=== PATIENT | female | born 1980 | race Caucasian/White ===

== ENCOUNTER 2020-01-29 08:32 | Emergency (ER) | payer OTHER ==
[~2020-01-29] VITALS: Ht 157.5 cm; Wt 89.4 kg
--- OUTSIDE RECORDS SUMMARY | ~2020-01-29 | XMS | Encounter Summary ---
Demographics + + + | Address | [address] | | | [place] [address] | + + + | Home Phone | | + + + | Preferred Language | Unknown | + + + | Marital Status | | + + + | Sabianist Affiliation | Unknown | + + + | Race | Unknown | + + + | Ethnic Group | Unknown | + + + Author + + + | Author | [facility] | | | and [place] | + + + | Organization | [facility] | | | and [place] | + + + | Address | Unknown | + + + | Phone | Unavailable | + + + Support + + +---------+ + | Name | Relationship | Address | Phone | + + +---------+ + | Mayur Bhagat | ECON | Unknown | | + + +---------+ + Care Team Providers + +------+ + | Care Steward/Stewardess Club Car Name | Role | Phone | + +------+ + | Madelyn Cardoso PA-C | PCP | | + +------+ + Reason for Visit Service/Procedure (Routine) +--------+--------+ + + + + | Status | Reason | Specialty | Diagnoses / | Referred By | Referred To | | | | | Procedures | Contact | Contact | +--------+--------+ + + + + | Closed | | Radiology | Diagnoses | | [facility] | | | | | Lumbar | [place], | [address] | | | | | spondylosis | Dale Gonzalez MD | [place], | | | | | Procedures | [address] | [place] | | | | | [place] IN[place] | [place] | [address] | | | | | DX/THER AGNT | [place], [place] | Phone: | | | | | [place] | [address] | [phone] | | | | | FACET JOINT, | Phone: | Fax: | | | | | LUMBAR/SAC, | [phone] | [phone] | | | | | 1ST LEVEL | Fax: | | | | | | [place] IN[place] | [phone] | | | | | | DX/THER AGNT | | | | | | | [place] | | | | | | | FACET JOINT, | | | | | | | LUMBAR/SAC, | | | | | | | 2ND LEVEL | | | | | | | [place] | | | | | | | TRIAMCINOLON | | | | | | | E ACET INJ | | | | | | | NOS, 10 MG | | | | | | | Bilat L4-5, | | | | | | | L5-S1 Facet | | | +--------+--------+ + + + + Encounter Details +--------+ + + + + | Date | Type | Department | Care Team | Description | +--------+ + + + + | 10/28/ | Hospital | [facility] | [place], | Chronic low back | | 2016 | Encounter | MED CTR XRAY [address] | [address] | pain; Facet | | | | [address] [place] | [address] | arthritis of lumbar | | | | [place] [address] | [place] [address] | region; Foraminal | | | | [phone] | [phone] | stenosis of lumbar | | | | | | region; Lumbar | | | | | [facility] | radiculopathy | | | | | [place] | | +--------+ + + + + Social History + +-------+ +--------+ + | Tobacco Use | Types | Packs/Day | Years | Date | | | | | Used | | + +-------+ +--------+ + | Former Smoker | | | | Quit: 08/24/2013 | + +-------+ +--------+ + + + +---------+ + | Alcohol Use | Drinks/Week | oz/Week | Comments | + + +---------+ + | No | 0 Standard drinks | 0.0 | | | | or equivalent | | | + + +---------+ + + + + | Sex Assigned at | Date Recorded | | | | + + + | Not on file | | + + + + + + + | Job Start Date | Occupation | Industry | + + + + | Not on file | Not on file | Not on file | + + + + + + + + | Travel History | Travel Start | Travel End | + + + + + + | No recent travel history available. | + + documented as of this encounter Last Filed Vital Signs + +---------+ + + | Vital Sign | Reading | Time Taken | Comments | + +---------+ + + | Blood Pressure | 152/70 | 10/29/2015 2:00 PM | | | | | PST | | + +---------+ + + | Pulse | 77 | 10/29/2015 2:00 PM | | | | | PST | | + +---------+ + + | Temperature | - | - | | + +---------+ + + | Respiratory Rate | - | - | | + +---------+ + + | Oxygen Saturation | - | - | | + +---------+ + + | Inhaled Oxygen | - | - | | | Concentration | | | | + +---------+ + + | Weight | - | - | | + +---------+ + + | Height | - | - | | + +---------+ + + | Body Mass Index | - | - | | + +---------+ + + documented in this encounter Medications at Time of Discharge + + + +---------+ + + | Medication | Sig | Dispensed | Refills | Start | End Date | | | | | | Date | | + + + +---------+ + + | | Take 30 mg by mouth | | 0 | | | | amphetamine-dextroam | every morning. | | | | | | phetamine (ADDERALL | | | | | | | XR) 30 MG 24 hr | | | | | | | capsule | | | | | | + + + +---------+ + + | cetirizine | Take 10 mg by mouth | | 0 | | | | (ZYRTEC) 10 mg | Daily. | | | | | | tablet | | | | | | + + + +---------+ + + | FLUoxetine | Take 40 mg by mouth | | 0 | | | | (PROZAC) 40 MG | Daily. | | | | | | capsule | | | | | | + + + +---------+ + + | metFORMIN | Take 500 mg by mouth | | 0 | | | | (GLUCOPHAGE-XR) 500 | daily (with | | | | | | mg 24 hr tablet | breakfast). | | | | | + + + +---------+ + + | traMADol (ULTRAM) | 1-2 tablets PO q 6 | 30 | 0 | 09/25/19 | | | 50 mg tablet | hours only as need | tablet | | 16 | | | | for severe back | | | | | | | pain; one time only, | | | | | | | must come from PCP | | | | | + + + +---------+ + + documented as of this encounter Plan of Treatment Not on filedocumented as of this encounter Procedures + +--------+ + + + | Procedure Name | Priori | Date/Time | Associated Diagnosis | Comments | | | ty | | | | + +--------+ + + + | FL FACET INJECTION | Routin | 10/29/2015 | Chronic low back | Results for this | | LUMBAR SACRAL | e | 2:23 PM | pain Facet | procedure are in the | | | | PST | arthritis of lumbar | results section. | | | | | region Foraminal | | | | | | stenosis of lumbar | | | | | | region Lumbar | | | | | | radiculopathy | | + +--------+ + + + documented in this encounter Results FL Facet Injection Lumbar Sacral (10/29/2015 2:23 PM PST) + + | Specimen | + + | | + + + + + | Narrative | Performed At | + + + | 10/29/2015 Bilateral Lumbar Facet Steroid Injections Diagnosis: | [facility] | | Lumbar Spondylosis ICD-10 Code M47.816 Shanice Bhagat | [facility] | | presents to the fluoroscopy suite for fluoroscopically-guided [facility] | | bilateral L4-L5 and L5-S1 facet injections as part of conservative | - IMAGING | | management for chronic pain with lumbar spondylosis. After informed | | | consent was obtained, the patient laid in the prone position on the | | | fluoroscopy table. The areas were identified under fluoroscopic | | | guidance. The areas were prepped and draped in sterile fashion. A | | | 25-gauge, 1.5-inch needle was inserted into each region and | | | approximately 3 mL of buffered 1% lidocaine was infused. Then, a | | | 22-gauge spinal needle was inserted into the superior portion of | | | each facet under fluoroscopic guidance. Confirmation into the joint | | | spaces was obtained with infusion of approximately 1 mL of Omnipaque | | | contrast which showed outline of the facet joints. Then, a | | | combination of 2 mL of 1% lidocaine and 2 mL of 40 mg/mL Kenalog was | | | infused divided between the 4 joints. The patient tolerated the | | | procedure well without complications. Pre- and post-procedure blood | | | pressures were stable. The patient was given verbal as well as written | | | follow-up instructions. Prior to the start of the procedure, | | | the following were performed and/or verified, including correct | | | patient identity, correct site/side marked and visible, agreement on | | | the procedure to be done, correct patient positioning and an | | | accurate procedure consent form. Any safety precautions based on | | | clinical history and/or medication use have been addressed. I | | | personally performed the procedure above. Estimated blood loss: | | | Minimal Complications: None Findings: As expected Anesthesia: Local | | | 1% Lidocaine | | + + + + + + + + | Performing | Address | City/State/Zipcode | Phone Number | | Organization | | | | + + + + + | [facility] | [address] | [place] | [phone] | | [facility] | | [address] | | | - IMAGING | | | | + + + + + documented in this encounter Visit Diagnoses + + | Diagnosis | + + | Chronic low back pain Lumbago | + + | Facet arthritis of lumbar region Lumbosacral spondylosis without myelopathy | + + | Foraminal stenosis of lumbar region Spinal stenosis, lumbar region, without | | neurogenic claudication | + + | Lumbar radiculopathy Thoracic or lumbosacral neuritis or radiculitis, unspecified | + + documented in this encounter Administered Medications + +--------+ +-------+------+------+ | Medication Order | MAR | Action | Dose | Rate | Site | | | Action | Date | | | | + +--------+ +-------+------+------+ | iohexol (OMNIPAQUE 300) 300 | Given | 10/29/19 | 4 mLs | | | | mg/mL injection 4 mL 4 mL, | | 16 2:24 | | | | | INTRATHECAL, ONCE, 10/29/15 at | | PM PST | | | | | 1445, For 1 dose | | | | | | + +--------+ +-------+------+------+ +---+---+ | | | +---+---+ + +-------+ +--------+---+ + | lidocaine 1% injection 10 mL | Given | 10/29/19 | 10 mLs | | Other | | 10 mL, Intradermal, ONCE, Mon | | 16 2:23 | | | (Comment | | 10/29/15 at 1445, For 1 dose | | PM PST | | | ) | + +-------+ +--------+---+ + +---+---+ | | | +---+---+ + +-------+ +-------+---+---+ | sodium bicarbonate (NEUT) 4% | Given | 10/29/19 | 2 mLs | | | | injection 2 mL 2 mL, Topical, | | 16 2:24 | | | | | ONCE, 10/29/15 at 1445, For 1 | | PM PST | | | | | dose | | | | | | + +-------+ +-------+---+---+ +---+---+ | | | +---+---+ + +-------+ +-------+---+---+ | triamcinolone acetonide | Given | 10/29/19 | 80 mg | | | | (KENALOG-40) 40 mg/mL injection | | 16 2:24 | | | | | 80 mg 80 mg, Intra-articular, | | PM PST | | | | | ONCE, 10/29/15 at 1445, For 1 | | | | | | | dose, Shake well. Not for IV | | | | | | | use., | | | | | | + +-------+ +-------+---+---+ +---+---+ | | | +---+---+ documented in this encounter"
--- OUTSIDE RECORDS SUMMARY | ~2020-01-29 | XMS | Encounter Summary ---
Demographics + + + | Address | [address] | | | [place] [address] | + + + | Home Phone | | + + + | Preferred Language | Unknown | + + + | Marital Status | | + + + | Protestant Affiliation | Unknown | + + + | Race | Unknown | + + + | Ethnic Group | Unknown | + + + Author + + + | Author | [facility] | | | and [place] | + + + | Organization | [facility] | | | and [...] Team Providers + +------+ + | Care Biochemical Engineer Name | Role | Phone | + +------+ + | Madelyn Cardoso PA-C | PCP | | + +------+ + Encounter Details +--------+ + + + + | Date | Type | Department | Care Team | Description | +--------+ + + + + | 09/20/ | Abstract | [facility] [place] | [place], | | | 2015 | | PHYSIATRY [address] | [address] | | | | | [address] | [address] | | | | | [address] | [place] [address] | | | | | [address] | [phone] | | | | | [phone] | | | +--------+ + + + + [...] Not on filedocumented as of this encounter Visit Diagnoses Not on filedocumented in this encounter"
--- OUTSIDE RECORDS SUMMARY | ~2020-01-29 | XMS | Encounter Summary ---
Demographics + + + | Address | [address] | | | [place] [address] | + + + | Home Phone | | + + + | Preferred Language | Unknown | + + + | Marital Status | | + + + | Alevism Affiliation | Unknown | + + + | Race | Unknown | + + + | Ethnic Group | Unknown | + + + Author + + + | Author | [facility] | | | and [place] | + + + | Organization | [facility] | | | [...] Team Providers + +------+ + | Care Outside Installation Machinist Name | Role | Phone | + +------+ + | Madelyn Cardoso PA-C | PCP | | + +------+ + Encounter Details +--------+ + + + + | Date | Type | Department | Care Team | Description | +--------+ + + + + | 09/10/ | Abstract | [facility] [place] | [place], | | | 2015 | | PHYSIATRY [address] | [address] | | | | | [address] | [address] | | | | | [address] | [place] [address] | | | | | [address] | [phone] | | | | | [phone] | | | +--------+ + + + [...]
--- OUTSIDE RECORDS SUMMARY | ~2020-01-29 | XMS | Encounter Summary ---
Demographics + + + | Address | [address] | | | [place] [address] | + + + | Home Phone | | + + + | Preferred Language | Unknown | + + + | Marital Status | Single | + + + | Sikh Affiliation | Unknown | + + + | Race | White | + + + | Ethnic Group | Not or | + + + Author + + + | Author | [facility] | + + + | Organization | [facility] | + + + | Address | Unknown | + + + | Phone | Unavailable | + + + Support + + +---------+ + | Name | Relationship | Address | Phone | + + +---------+ + | None Per Pt | ECON | Unknown | Unavailable | + + +---------+ + Care Team Providers + +------+ + | Care Marine Electronics Repairer Name | Role | Phone | + +------+ + PCP | Unavailable | + +------+ + Reason for Visit +--------+ + | Reason | Comments | +--------+ + | Other | Care Everywhere Inquiry | +--------+ + Encounter Details +--------+ + + + + | Date | Type | Department | Care Team | Description | +--------+ + + + + | 11/25/ | Abstract | Rheumatology at | Clinic, | Other (Care | | 2017 | | [facility] | Rheumatology | Everywhere Inquiry) | | | | [address] | | | | | | [facility] | | | | | | [facility], [address] Floor | | | | | | [place], [place] | | | | | | [address] | | | | | | [phone] | | | +--------+ + + + + Social History + +-------+ +--------+------+ | Tobacco Use | Types | Packs/Day | Years | Date | | | | | Used | | + +-------+ +--------+------+ | Never Assessed | | | | | + +-------+ +--------+------+ + + + | Sex Assigned at [...]
--- OUTSIDE RECORDS SUMMARY | ~2020-01-29 | XMS | Encounter Summary ---
Demographics + + + | Address | [address] | | | [place] [address] | + + + | Home Phone | | + + + | Preferred Language | Unknown | + + + | Marital Status | Single | + + + | Jainism Affiliation | Unknown | + + + | Race | White | + + + | Ethnic Group | Not or | + + + Author + + + | Author | [facility] | + + + | Organization | [facility] | + + + | Address | Unknown | + + + | Phone | Unavailable | + + + Support + + +---------+ + | Name | Relationship | Address | Phone | + + +---------+ + | None Per Pt | ECON | Unknown | Unavailable | + + +---------+ + Care Team Providers + +------+ + | Care Application Operations Engineer Name | Role | Phone | + +------+ + PCP | Unavailable | + +------+ + Encounter Details +--------+ + + + + | Date | Type | Department | Care Team | Description | +--------+ + + + + | 08/18/ | ED Progress | Emergency Medicine | Report, Emergency | ED Progress Note | | 1994 | | [address] | Services | | | | Note-Transc | [address] | | | | | [place] | [place], [place] | | | | | | [address] | | | +--------+ + + + [...]
--- OUTSIDE RECORDS SUMMARY | ~2020-01-29 | XMS | Encounter Summary ---
Demographics + + + | Address | [address] | | | [place] [address] | + + + | Home Phone | | + + + | Preferred Language | Unknown | + + + | Marital Status | | + + + | Restorationism Affiliation | Unknown | + + + | Race | Unknown | + + + | Ethnic Group | Unknown | + + + Author + + + | Author | [facility] | | | and [place] | + + + | Organization | [facility] | | | and [...] Team Providers + +------+ + | Care Cold Saw Operator Name | Role | Phone | + [...] | | | | [address] | [place] [address] | | | | | [address] | [phone] | | | | | [phone] | | | +--------+ + + + [...]
--- OUTSIDE RECORDS SUMMARY | ~2020-01-29 | XMS | Encounter Summary ---
Demographics + + + | Address | [address] | | | [place] [address] | + + + | Home Phone | | + + + | Preferred Language | Unknown | + + + | Marital Status | | + + + | Judaism Affiliation | Unknown | + + + | Race | Unknown | + + + | Ethnic Group | Unknown | + + + Author + + + | Author | [facility] | | | and [place] | + + + | Organization | [facility] | | | and [...] Team Providers + +------+ + | Care Barrel Rifler Name | Role | Phone | + +------+ + | Madelyn Cardoso PA-C | PCP | | + +------+ + Reason for Visit + + + | Reason | Comments | + + + | Back Pain | low back pain radiating into right leg | + + + Evaluate & Treat (Routine) +--------+--------+ + + + + | Status | Reason | Specialty | Diagnoses / | Referred By | Referred To | | | | | Procedures | Contact | Contact | +--------+--------+ + + + + | Closed | | Physical | Diagnoses | | [place], | | | | Medicine and | Annular | Walker, | Dale Gonzalez MD | | | | Rehabilitatio | tear of | Madelyn Rodriguez, | [address] | | | | n | lumbar disc | PA-C [address] | | | | | Facet | [address] | [facility], [place] | | | | | hypertrophy | Ave | [address] Phone: | | | | | of lumbar | Tabitha, | [phone] | | | | | region | [place] | Fax: | | | | | | [address] | [phone] | | | | | | Phone: | | | | | | | [phone] | | | | | | | Fax: | | | | | | | [phone] | | +--------+--------+ + + + + Encounter Details +--------+---------+ + + + | Date | Type | Department | Care Team | Description | +--------+---------+ + + + | 09/25/ | Office | [facility] | [place], | Chronic low back | | 2016 | Visit | PHYSIATRY [address] | [address]OR Jeter [address] | pain (Primary Dx); | | | | [address] | [address] | Facet arthritis of | | | | [place], [place] | [place] [address] | lumbar region; | | | | [address] | [phone] | Foraminal stenosis | | | | [phone] | | of lumbar region; | | | | | | Lumbar radiculopathy | +--------+---------+ + + + Social History + +-------+ [...] this encounter Last Filed Vital Signs + + + + + | Vital Sign | Reading | Time Taken | Comments | + + + + + | Blood Pressure | 127/85 | 09/25/2015 2:27 PM | | | | | PST | | + + + + + | Pulse | 95 | 09/25/2015 2:27 PM | | | | | PST | | + + + + + | Temperature | - | - | | + + + + + | Respiratory Rate | - | - | | + + + + + | Oxygen Saturation | - | - | | + + + + + | Inhaled Oxygen | - | - | | | Concentration | | | | + + + + + | Weight | 83.5 kg (184 lb) | 09/25/2015 2:27 PM | | | | | PST | | + + + + + | Height | 157.5 cm (5' 2") | 09/25/2015 2:27 PM | | | | | PST | | + + + + + | Body Mass Index | 33.65 | 09/25/2015 2:27 PM | | | | | PST | | + + + + + documented in this encounter Patient Instructions Patient Instructions Steffany Montes De Oca PA-C - 09/25/2015 2:58 PM PST1) Facet steroid in jection 2) Please continue with physical therapy 3) If the leg pain continues we can start that with steroid injections too Facet Pain: The facet joint is located when the vertebrae (bones of the spine) connect to each other. Pain occurs with extension and rotation of the spine (bending backwards and rotating), bend ing over and lifting a heavy load, standing, first things in the morning. Images of the spi ne show facet arthritis, fluid in the facet joints. Treatment included rest, anti-inflammat ories, physical therapy focusing on core strengthening, facet steroid injections. Steroids are a very strong anti-inflammatory, this helps reduce pain by reducing swelling. Complications of steroids are bleeding, infection, and an increase of blood sugars if you are diabetic. medical terminologist risk can lead to osteoporosis which is why we limited the number of injections to 3 times per year. Facet joints are located when the vertebrae (bones of the spine) connect to each other. Typically these joints can have arthritis in this and give a person centralized low back pain. The procedure takes about 20 minutes. You lie on your b ack and x-rays are taken. Once the region is localized, it is numbed and then injected with steroid. Radiofrequency Ablation (RFA) Burning of the nerves: This procedure is typically done when the steroid injections give excellent initial relief but does not last long. It is the same procedure as the steroid injections however it take s approximately 2 hours to complete. A needle is placed inside the facet joints and then co nnected to a battery pack which heats up the needle to burn the nerves inside the joint. Yo u must not eat after midnight the night before as you are put into procedural sedation where you can hear and talk but do not feel pain. You must have a entry level truck driver to get home from the hospital. You will feel more bruising pain to the location of the needles for approxima tely 4-5 days after this procedure, but once that clears up, you should be pain free for 8 m onths to 2 years, depends on when the nerve grows back. Foraminal Stenosis/Radicular Pain: Foraminal stenosis is a narrowing of the spinal foramen, the hole through which passes a s leyda nerve as it exits the spine. It is usually a form of degenerative spine disease which occurs slowly over time with wear and tear of the spinal column. Arthritic changes of the s pine, a herniated discs, soft tissue swelling and bony growth can all impinge on the formal foramen and compress the nerve. Because the narrowing (stenosis) of the foramen pinches a nerve, the primary symptoms relat ed to this disorder is directly related to that nerve which is affected. This obviously vari es depending on which foramina are involved. The pinched nerve can lead to basically two cl asses of symptoms. Symptoms include pain in the distribution of that nerve as well as numbne ss, tingling and or weakness can occur. Steroids are a very strong anti-inflammatory, this helps reduce pain by reducing swelling. Complications of steroids are bleeding, infection, and an increase of blood sugars if you are diabetic. USP risk can lead to osteoporosis which is why we limited the number of injections to 3 times per year. With an epidural injection, the nerve root that comes out of the spine and travels down your leg is targeted. The procedure is about 20 minutes long . You will lie on your back while x-rays are taken. Once the region is marked, it is numbe d and then injected with steroids. documented in this encounter Progress Notes Steffany Montes De Oca PA-C - 09/25/2015 2:11 PM PSTFormatting of this note might be differe nt from the original. CHIEF COMPLAINT: Chief Complaint Patient presents with Back Pain low back pain radiating into right leg HISTORY OF PRESENT ILLNESS: The patient is a 35 y.o. female being seen today for complaint s of low back pain that began 6 months ago from no known reason but has gotten worse. 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 She reports her job is very physical and her back pain is limiting her ability to do this work. Since the symptoms began, she has noticed that symptoms have been chronic, constant and wor sening. She describes the pain as a aching, sharp, shooting and throbbing feeling. She rates the pain as severe. Her symptoms worsen with lifting her caregiver, prolonged standing more than 4 hurs, driving her stick shift car and standing straight. Sleep is difficulty as she cannot find a comfortable position. Her symptoms improve with sitting down. The patient also describes leg symptoms that occur on her right side. The leg symptoms acc ount for greater than or equal to 25% of her symptoms. The leg symptoms are intermittent an d the symptoms travels from the right low back down to the right toes following the L5 derma tome. The patient does not describe numbness of the legs. She does not report weakness of the l egs. She does not have bowel and bladder dysfunction. She does not have saddle anesthesia . Treatments for these complaints have included physical therapy which she went just once jus t to her schedule she could not find time to go again, use of NSAIDS every 4-6 hours, muscle relaxers. Patient's medications, allergies, past medical, surgical, social and family histories were reviewed and updated as appropriate. PAST MEDICAL HISTORY: Past Medical History Diagnosis Date Depression with anxiety Fatty liver disease, nonalcoholic Lower back pain Polycystic ovarian syndrome ADHD (attention deficit hyperactivity disorder) HLA B27 (HLA B27 positive) Depression Hypertension Chronic low back pain 09/25/2015 Facet arthritis of lumbar region 09/25/2015 Foraminal stenosis of lumbar region 09/25/2015 Lumbar radiculopathy 09/25/2015 PAST SURGICAL HISTORY: Past Surgical History Procedure Laterality Date section 1995;2012 X2 [facility] Tonsillectomy 2006 [facility] Cholecystectomy 2012 CURRENT MEDICATIONS: Current Outpatient Prescriptions Medication Sig Dispense Refill amphetamine-dextroamphetamine (ADDERALL XR) 30 MG 24 hr capsule Take 30 mg by mouth renetta ry morning. cetirizine (ZYRTEC) 10 mg tablet Take 10 mg by mouth Daily. FLUoxetine (PROZAC) 40 MG capsule Take 40 mg by mouth Daily. metFORMIN (GLUCOPHAGE-XR) 500 mg 24 hr tablet Take 500 mg by mouth daily (with breakfas t). traMADol (ULTRAM) 50 mg tablet 1-2 tablets PO q 6 hours only as need for severe back pa in; one time only, must come from PCP 30 tablet 0 No current facility-administered medications for this visit. ALLERGIES: Allergies Allergen Reactions Sulfa Antibiotics Diarrhea and Nausea And Vomiting Amoxicillin Hives and Rash Erythromycin Hives and Rash SOCIAL HISTORY: The patient reports that she quit smoking about 2 years ago. She does not have any smokele ss tobacco history on file. She reports that she does not drink alcohol. FAMILY HISTORY: Family History Problem Relation Age of Onset Diabetes Father Other (See Comment) Father ANKYLOSING SPONDYLITIS Diabetes Maternal Grandmother Breast cancer Mother Cancer Mother Arthritis Mother Other (See Comment) Sister ANKYLOSING SPONDYLITIS Diabetes Sister Polycystic ovary Daughter PCOS Heart attack Maternal Grandfather REVIEW OF SYSTEMS: GENERALLY: No fever, chills, no night sweats, + weight gain, no weight loss, no anemia, n o fatigue. EYES: No eye problems, no impaired sight, + eye glasses/contacts, no eye injury, no double vision, no transient blindness. EARS, NOSE, THROAT and MOUTH: No change in sense taste/smell, no hearing difficulty, no ri nging in ears, no drainage from ears, no ear injury, no dizziness, no voice change, no diffi culty swallowing, no snoring, no sleep apnea/CPAP, no sinus trouble, no dental work. NEUROMUSCULAR: No numbness/pain of arms, + numbness/pain of legs, no awake with numbness/p ain, + weakness, + muscle aching, no coordination difficulty, no change in walk, no head inj ury, no neck injury, no back injury, no pain in neck, no pain in back, no stroke, no faintin g spells, no loss of consciousness, no tremor/shaking, no seizures, no headaches, no migrain es, no memory loss, no speech difficulty, no confusion, no numbness of face. PSYCHIATRIC: No depression, no difficulty sleeping, no anxiety, no bipolar disorder. CARDIOVASCULAR/PULMONARY: No heart attack, no heart murmur, no fluttering heart, no shortn ess of breath, no cough, no Tuberculosis, no chest pain, no swelling ankles, no bloody cough ing, no asthma, no COPD/emphysema. GASTROINTESTINAL: No bowel disease, no nausea/vomiting, no rectal bleeding/hemorroids, no constipation, no fecal/stool incontinence, no liver/gallbladder disease, no abdominal pain. KIDNEY DISEASE: No frequent urination, no painful/difficult with urination, no urinary inco ntinence, no bladder problems, no impotence, no irregular period, no vaginal discharge. ENDOCRINE: No diabetes, no thyroid disease, no osteoporosis/osteopenia, no drainage from br easts. INTEGUMENTARY/SKIN: No lump in breasts, no skin disease or skin changes, no rash/itch. HEMATOLOGIC: No enlarged lymph nodes, no ease or unusual bleeding, no cancer. RHEUMATOLOGIC: + joint pain/arthritis, no Rheumatoid Arthritis PHYSICAL EXAMINATION: Filed Vitals: 09/25/15 1427 BP: 127/85 Pulse: 95 PainSc: 6 PainLoc: Back Body mass index is 33.65 kg/(m^2). GENERAL: The patient is well developed and well nourished. She does appear uncomfortable w hen seated. HEENT: HEAD/FACE: EYES: EARS: NASOPHARNYX: OROPHARNYX: Normocephalic and atraumatic. There are no areas of recent trauma. Normal sclerae without icterus. No drainage or tenderness. Clear without drainage. Clear without erythema. SKIN Limited skin exam shows no significant rashes or lesions. There are not scars in the lumbar region. CHEST: The patient is in no acute respiratory distress with unlabored respirations. HEART: There is not lower extremity edema. ABDOMEN: The patient is overweight. NEUROLOGIC: The patient is awake, alert, and oriented to time, place, person. She follows simple and complex commands. Her speech is fluent. She comprehends speech well. 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 She has appropriate fund of knowledge Cranial nerves 2-12 appear grossly intact. Sensory exam does not show diminished sensation to light touch in the lower extremities. REFLEX: RIGHT LEFT PATELLAR 2+ 2+ ACHILLES 2+ 2+ MUSCULOSKELETAL There is no major palpable deformity of the spine. Straight leg raise and slump-sit are negative. Caden's maneuver and impingement testing were negative for any groin pain. There was no tenderness to palpation over the greater tr ochanters or sacral sulci. The patient localized the majority of the pain to the L4-L5 and L5-S1 region. Lumbar facet loading was positive, right greater than left. Strength testing showed 5/5 strength throughout the lower extremities. The patient was able to heel and toe walk without difficulty. There was no redness, effusion, warmth or joint line tenderness i n the knees or ankles. RADIOGRAPHIC REVIEW: The patient's imaging was reviewed in detail with the patient today during the visit. Lumb ar MRI from 08/07/2015 under the name "Shanice Delong" shows lumbar DDD especially at L4/L5 a nd L5/S1, with facet arthritis at this level. She also has foraminal stenosis at L5/S1 on th e right. ASSESSMENT: 1. Chronic low back pain 2. Facet arthritis of lumbar region 3. Foraminal stenosis of lumbar region 4. Lumbar radiculopathy PLAN: 1. We discussed her MRI and symptoms in detail today. The patient has had significant con servative care including medications, and physical therapy. Unfortunately she continues to h ave significant discomfort. It appears to me that the pain is primarily coming from the fac et arthritis. I did feel that she would be a good candidate for interventional procedures a nd I offered bilateral L4/L5 and L5/S1 facet steroid injections as the next step. 2. If her radicular symptoms are more pronounced we can target this with a transforaminal epidural steroid injection. 3. I have asked her to continue with physical therapy, even if she goes 1x/week and do garrett e exercise program. 4. 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 We reviewed a home exercise pr ogram including aerobic conditioning, isometric core strengthening and gentle stretching. 5. She did ask for pain medications. In the end I gave her a one time prescription for tr amadol, but advised her our goal here in physiatry is to get improve her symptoms enough she is not reliant on pain medications. I told her all narcotics should come from her PCP. 6. I informed her she is not a surgical candidate at this time. 7. She will follow up 2 weeks after the facet steroid injections. ELECTRONICALLY SIGNED BY: Steffany Montes De Oca PA-C, 09/25/2015 CC: Madelyn Mcdonnelllectronically signed by Steffany Montes De Oca PA-C at 09/25/2015 3: 24 PM PSTdocumented in this encounter Plan of Treatment Not on filedocumented as of this encounter Results [place] Facet Injection Lumbar Sacral (10/29/2015 2:23 PM PST) + + | Specimen | + + | | + + + + + | Narrative | Performed At | + + + | 10/29/2015 Bilateral Lumbar Facet Steroid Injections Diagnosis: | [facility] | | Lumbar Spondylosis ICD-10 Code M47.816 Shanice Bhagat | [facility] | | presents to the fluoroscopy suite for fluoroscopically-guided | [facility] | | bilateral L4-L5 and L5-S1 facet [...] | + + + + + | [address] | [address] | [place] | [phone] | | [facility] | | [address] | | | - IMAGING | | | | + + + + + documented in this encounter Visit Diagnoses + + | Diagnosis | + + | Chronic low back pain - Primary Lumbago | + + | Facet arthritis of lumbar region Lumbosacral spondylosis without myelopathy | + + | Foraminal stenosis of lumbar region Spinal stenosis, lumbar region, without | | neurogenic claudication | + + | Lumbar radiculopathy Thoracic or lumbosacral neuritis or radiculitis, unspecified | + + documented in this encounter
--- OUTSIDE RECORDS SUMMARY | ~2020-01-29 | XMS | Encounter Summary ---
Demographics + + + | Address | [address] | | | [place] [address] | + + + | Home Phone | | + + + | Preferred Language | Unknown | + + + | Marital Status | | + + + | Moravian Affiliation | Unknown | + + + | Race | Unknown | + + + | Ethnic Group | Unknown | + + + Author + + + | Author | [facility] | | | and [place] | + + + | Organization | [facility] | | | and [...] Team Providers + +------+ + | Care Data Governance Analyst Name | Role | Phone | + +------+ + | Madelyn Cardoso PA-C | PCP | | + +------+ + Reason for Visit +--------+ + | Reason | Comments | +--------+ + | Other | post injection complication | +--------+ + Encounter Details +--------+ + + + + | Date | Type | Department | Care Team | Description | +--------+ + + + + | 10/30/ | Telephone | [facility] | Dale Cardoza | Other (post | | 2016 | | PHYSIATRY [address] | [address] | injection | | | | [address] | [place], [place] | complication) | | | | [place], [place] | [address] | | | | | [address] | | | | | | [phone] | | | +--------+ + + + [...]
--- OUTSIDE RECORDS SUMMARY | ~2020-01-29 | XMS | Encounter Summary ---
Demographics + + + | Address | [address] | | | [place] [address] | + + + | Home Phone | | + + + | Preferred Language | Unknown | + + + | Marital Status | | + + + | Presybeterian Affiliation | Unknown | + + + | Race | Unknown | + + + | Ethnic Group | Unknown | + + + Author + + + | Author | [facility] | | | and [place] | + + + | Organization | [facility] | | | [...] Team Providers + +------+ + | Care Residential Plumber Name | Role | Phone | + +------+ + PCP | Unavailable | + +------+ + Encounter Details +--------+ + + + + | Date | Type | Department | Care Team | Description | +--------+ + + + + | 08/03/ | [facility] | [facility] | Mariano Sow | | | 2005 | Encounter | MED CTR SLEEP | MD [address] | | | | | CENTER [address] | [place] | | | | | [place] | [place] [address] | | | | | [address] | [phone] | | | | | [phone] | | | +--------+ + + + [...]
--- OUTSIDE RECORDS SUMMARY | ~2020-01-29 | XMS | Encounter Summary ---
Demographics + + + | Address | [address] | | | [place] [address] | + + + | Home Phone | | + + + | Preferred Language | Unknown | + + + | Marital Status | | + + + | Nondenominational Affiliation | Unknown | + + + | Race | Unknown | + + + | Ethnic Group | Unknown | + + + Author + + + | Author | [facility] | | | and [place] | + + + | Organization | [facility] | | | and [...] Team Providers + +------+ + | Care Security Operations Analyst Name | Role | Phone | [...] + | 10/30/ | Telephone | [facility] | Dale Cardoza | Other (post | | 2016 | | PHYSIATRY [address] | [address] | injection | | | | [address] | [place] | complication) | | | | [place], [place] | [address] | | | | | [address] | | | | | | [phone] | | | +--------+ + + + [...]
--- OUTSIDE RECORDS SUMMARY | ~2020-01-29 | XMS | Encounter Summary ---
Demographics + + + | Address | [address] | | | [place] [address] | + + + | Home Phone | | + + + | Preferred Language | Unknown | + + + | Marital Status | | + + + | Orthodox Affiliation | Unknown | + + + | Race | Unknown | + + + | Ethnic Group | Unknown | + + + Author + + + | Author | [facility] | | | and [place] | + + + | Organization | [facility] | | | [...] Team Providers + +------+ + | Care Financial Systems Administrator Name | Role | Phone | + +------+ + PCP | Unavailable | + +------+ + Encounter Details +--------+ + + + + | Date | Type | Department | Care Team | Description | +--------+ + + + + | 03/27/ | Hospital | [facility] | | | | 1999 | Encounter | MED CTR EMERGENCY | | | | | | NANCY Hernandez | | | | | | [place] | | | | | | [address] | | | | | | [phone] | | | +--------+ + + + [...]
--- OUTSIDE RECORDS SUMMARY | ~2020-01-29 | XMS | Encounter Summary ---
Demographics + + + | Address | [address] | | | [place] [address] | + + + | Home Phone | | + + + | Preferred Language | Unknown | + + + | Marital Status | | + + + | Sikhism Affiliation | Unknown | + + + | Race | Unknown | + + + | Ethnic Group | Unknown | + + + Author + + + | Author | [facility] | | | and [place] | + + + | Organization | [facility] | | | [...] Team Providers + +------+ + | Care Detail Assembler Name | Role | Phone | + +------+ + PCP | Unavailable | + +------+ + Encounter Details +--------+ + + + + | Date | Type | Department | Care Team | Description | +--------+ + + + + | 08/03/ | [facility] | [facility] | Mariano Sow | | | 2005 | Encounter | MED CTR SLEEP | [address] | | | | | CENTER [address] | [place] | | | | | [place] | [place] [address] | | | | | [address] | [phone] | | | | | [phone] | | | +--------+ + + + [...]
--- OUTSIDE RECORDS SUMMARY | ~2020-01-29 | XMS | Clinical Summary ---
Demographics + + + | Address | [address] | | | [place] [address] | + + + | Home Phone | | + + + | Preferred Language | Unknown | + + + | Marital Status | Single | + + + | Presybeterian Affiliation | Unknown | + + + | Race | White | + + + | Ethnic Group | Not or | + + + Author + + + | Author | [facility] | + + + | Organization | [facility] | + + + | Address | Unknown | + + + | Phone | Unavailable | + + + Support + + +---------+ + | Name | Relationship | Address | Phone | + + +---------+ + | None Per Pt | ECON | Unknown | Unavailable | + + +---------+ + Care Team Providers + +------+ + | Care Pre Sales Architect Name | Role | Phone | + +------+ + | Razia Guzman PA-C | PCP | | + +------+ + Source Comments JULIO is fully live on both [facility] Ambulatory and [facility] InPatient.[facility] Allergies Not on File Medications Not on file Active Problems Not on file Social History + +-------+ +--------+------+ | Tobacco [...] recent travel history available. | + + Last Filed Vital Signs Not on file Plan of Treatment + + + + + | Health Maintenance | Due Date | Last Done | Comments | + + + + + | Influenza (Flu) | | | | | vaccination (#1) | 9 | | | + + + + + | Pneumococcal | Aged Out | | No longer eligible | | vaccination | | | based on patient's | | | | | age to complete this | | | | | topic | + + + + + Results Not on filefrom Last 3 Months Insurance + +--------+ +--------+ + +------+ | Payer | Benefi | Subscriber | Effect | Phone | Address | Type | | | t Plan | ID | rosemary | | | | | | / | | Dates | | | | | | Group | | | | | | + +--------+ +--------+ + +------+ | [facility] | PHP | [phone] | 08/24/19 | [phone] | [address] | PPO | | | [address] | | 17-Pre | [address] | [address] | | | [address] | | sent | | [place], | | | | [place] | | | | [place] [address] | | + +--------+ +--------+ + +------+ + +--------+ +--------+ + + | Guarantor Name | Accoun | Relation to | Date | Phone | Billing Address | | | t Type | Patient | of | | | | | | | | | | + +--------+ +--------+ + + | Shanice Bhagat | Person | Self | [birth year] | [address] | | | al/Fam | | 1980 | [phone] | [place] | | | [place]i | | | 3 (Home) | [address] | + +--------+ +--------+ + +"
--- OUTSIDE RECORDS SUMMARY | ~2020-01-29 | XMS | Encounter Summary ---
Demographics + + + | Address | [address] | | | [place] [address] | + + + | Home Phone | | + + + | Preferred Language | Unknown | + + + | Marital Status | | + + + | Episcopalian Affiliation | Unknown | + + + | Race | Unknown | + + + | Ethnic Group | Unknown | + + + Author + + + | Author | [facility] | | | and [place] | + + + | Organization | [facility] | | | [...] Team Providers + +------+ + | Care Product Technician Name | Role | Phone | + [...] | | Facet | [address] | [facility] | | | | | hypertrophy | Ave | [address] Phone: | | | | | of lumbar | [place], | [phone] | | | | | region | [place] | Fax: | | | | | | [address] | [phone] | | | | | | Phone: | | | | | | | [phone] | | | | | | | Fax: | | | | | | | [phone] | | +--------+--------+ + + + + Encounter Details +--------+---------+ + + + | Date | Type | Department | Care Team | Description | +--------+---------+ + + + | 09/25/ | Office | [facility] | [place], | Chronic low back | | 2016 | Visit | PHYSIATRY [address] | [address] | pain (Primary Dx); | | | | [address] | [address] | Facet arthritis of | | | | [place], [place] | [place] [address] | lumbar region; | | | | [address] | [phone] | Foraminal stenosis | | | | [phone] | | of lumbar region; | | [...] of blood sugars if you are diabetic. 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 [...] of blood sugars if you are diabetic. group home risk can lead to osteoporosis which is [...] has no apparent deficits with short or long goods drier memory. She has appropriate fund of knowledge [...] best thing to do for back pain, long goods drier, is get ting to and/or maintaining an [...] ICD-10 Code M47.816 Shanice Bhagat | [facility] | | presents to the fluoroscopy suite for fluoroscopically-guided | [facility] | | bilateral L4-L5 and L5-S1 [...] + | [address] | [address] | [place] | [phone] | | [facility] | | [address] | | | - IMAGING | | [...]
--- OUTSIDE RECORDS SUMMARY | ~2020-01-29 | XMS | Encounter Summary ---
Demographics + + + | Address | [address] | | | [place] [address] | + + + | Home Phone | | + + + | Preferred Language | Unknown | + + + | Marital Status | Single | + + + | Zoroastrianism Affiliation | Unknown | + + + | Race | White | + + + | Ethnic Group | Not or | + + + Author + + + | Author | [facility] | + + + | Organization | [facility] | + + + | Address | Unknown | + + + | Phone | Unavailable | + + + Support + + +---------+ + | Name | Relationship | Address | Phone | + + +---------+ + | None Per Pt | ECON | Unknown | Unavailable | + + +---------+ + Care Team Providers + +------+ + | Care Twenty One Dealer Name | Role | Phone | + [...] | Everywhere Inquiry) | | | | [address] | | | | | | [address] [facility] | | | | | | [address]ilion, [address] Floor | | | | | | [place], [place] | | | | | | [address] | | | | | | [phone] | | | +--------+ + + + [...]
--- OUTSIDE RECORDS SUMMARY | ~2020-01-29 | XMS | Encounter Summary ---
Demographics + + + | Address | [address] | | | [place] [address] | + + + | Home Phone | | + + + | Preferred Language | Unknown | + + + | Marital Status | | + + + | Voodoo Affiliation | Unknown | + + + | Race | Unknown | + + + | Ethnic Group | Unknown | + + + Author + + + | Author | [facility] | | | and [place] | + + + | Organization | [facility] | | | and [...] Team Providers + +------+ + | Care Kitchen Lead Name | Role | Phone | + [...] | Lumbar | [place], | [address] | | | | | spondylosis | Dale Gonzalez MD | [place], | | | | | Procedures | [address] | [place] | | | | | [place] INJ | [place] | [address] | | | | | DX/THER AGNT | [place], [place] | Phone: | | | | | [place] | [address] | [phone] | | | | | [address], | Phone: | Fax: | | | | | LUMBAR/SAC, | [phone] | [phone] | | | | | 1ST LEVEL | Fax: | | | | | | MS INJ | [phone] | | | | | | DX/THER AGNT | | | | | | | [place] | | | | | | | [address] [place], | | | | | | | LUMBAR/SAC, | | | | | | | 2ND LEVEL | | | | | | | MS | | | | | | | [...] + + | 10/28/ | Hospital | [facility] | [place], | Chronic low back | | 2016 | Encounter | MED CTR XRAY [address] | [address] | pain; Facet | | | | [address] [place] | [address] | arthritis of lumbar | | | | [place] [address] | [place] [address] | region; Foraminal | | | | [phone] | [phone] | stenosis of lumbar | | | | | | region; Lumbar | | | | | [facility] | radiculopathy | | | | | [...] Bilateral Lumbar Facet Steroid Injections Diagnosis: | [facility] | | Lumbar Spondylosis ICD-10 Code M47.816 Shanice Bhagat | [facility] | | presents to the fluoroscopy suite for fluoroscopically-guided [facility] | | bilateral L4-L5 and L5-S1 [...] + | [address] | [address] | [place] | [phone] | | [facility] | | [address] | | | - IMAGING | | [...]
--- OUTSIDE RECORDS SUMMARY | ~2020-01-29 | XMS | Encounter Summary ---
Demographics + + + | Address | [address] | | | [place] [address] | + + + | Home Phone | | + + + | Preferred Language | Unknown | + + + | Marital Status | | + + + | Anabaptism Affiliation | Unknown | + + + | Race | Unknown | + + + | Ethnic Group | Unknown | + + + Author + + + | Author | [facility] | | | and [place] | + + + | Organization | [facility] | | | [...] Team Providers + +------+ + | Care Diamond Wheel Molder Name | Role | Phone | + [...] | | | | [place] | [place] [address] | | | | | [address] | [phone] | | | | | [phone] | | | +--------+ + + + [...]
--- OUTSIDE RECORDS SUMMARY | ~2020-01-29 | XMS | Clinical Summary ---
Demographics + + + | Address | [address] | | | [place] [address] | + + + | Home Phone | | + + + | Preferred Language | Unknown | + + + | Marital Status | | + + + | Religion Affiliation | Unknown | + + + | Race | Unknown | + + + | Ethnic Group | Unknown | + + + Author + + + | Author | [facility] | | | and [place] | + + + | Organization | [facility] | | [...] Team Providers + +------+ + | Care Spray Applicator Name | Role | Phone | + +------+ + | Madelyn Cardoso PA-C | PCP | | + +------+ + Allergies + + + + + + | Active Allergy | Reactions | Severity | Noted | Comments | | | | | Date | | + + + + + + | Amoxicillin | Hives, Rash | Low | 09/10/19 | | | | | | 16 | | + + + + + + | Erythromycin | Hives, Rash | Low | 09/10/19 | | | | | | 16 | | + + + + + + | Sulfa Antibiotics | Diarrhea, Nausea And | | 09/10/19 | | | | Vomiting | | 16 | | + + + + + + Medications + + + +---------+------+------+-------+ | Medication | Sig | Dispensed | Refills | Star | End | Statu | | | | | | t | Date | s | | | | | | Date | | | + + + +---------+------+------+-------+ | | Take 30 mg by mouth | | 0 | | | Activ | | amphetamine-dextroam | every morning. | | | | | e | | phetamine (ADDERALL | | | | | | | | XR) 30 MG 24 hr | | | | | | | | capsule | | | | | | | + + + +---------+------+------+-------+ | FLUoxetine | Take 40 mg by mouth | | 0 | | | Activ | | (PROZAC) 40 MG | Daily. | | | | | e | | capsule | | | | | | | + + + +---------+------+------+-------+ | metFORMIN | Take 500 mg by mouth | | 0 | | | Activ | | (GLUCOPHAGE-XR) 500 | daily (with | | | | | e | | mg 24 hr tablet | breakfast). | | | | | | + + + +---------+------+------+-------+ | cetirizine | Take 10 mg by mouth | | 0 | | | Activ | | (ZYRTEC) 10 mg | Daily. | | | | | e | | tablet | | | | | | | + + + +---------+------+------+-------+ | traMADol (ULTRAM) | 1-2 tablets PO q 6 | 30 | 0 | 02/0 | | Activ | | 50 mg tablet | hours only as need | tablet | | 2/20 | | e | | | for severe back | | | 16 | | | | | pain; one time only, | | | | | | | | must come from PCP | | | | | | + + + +---------+------+------+-------+ Active Problems + + + | Problem | Noted Date | + + + | Chronic low back pain | 09/25/2015 | + + + | Facet arthritis of lumbar region | 09/25/2015 | + + + | Foraminal stenosis of lumbar region | 09/25/2015 | + + + | Lumbar radiculopathy | 09/25/2015 | + + + Family History + + +------+ + | Medical History | Relation | Name | Comments | + + +------+ + | Polycystic ovary | Daughter | | PCOS | + + +------+ + | Diabetes | Father | | | + + +------+ + | Other (see comment) | Father | | ANKYLOSING SPONDYLITIS | + + +------+ + | Heart attack | Maternal | | | | | Grandfath | | | | | er | | | + + +------+ + | Diabetes | Maternal | | | | | Grandmoth | | | | | er | | | + + +------+ + | Arthritis | Mother | | | + + +------+ + | Breast cancer | Mother | | | + + +------+ + | Cancer | Mother | | | + + +------+ + | Diabetes | Sister | | | + + +------+ + | Other (see comment) | Sister | | ANKYLOSING SPONDYLITIS | + + +------+ + + +------+--------+ + | Relation | Name | Status | Comments | + +------+--------+ + | Daughter | | | | + +------+--------+ + | Father | | | | + +------+--------+ + | Maternal Grandfather | | | | + +------+--------+ + | Maternal Grandmother | | | | + +------+--------+ + | Mother | | | | + +------+--------+ + | Sister | | | | + +------+--------+ + Social History + +-------+ +--------+ + [...] | + + Last Filed Vital Signs + + + + + | Vital Sign | Reading | Time Taken | Comments | + + + + + | Blood Pressure | 152/70 | 10/29/2015 2:00 PM | | | | | PST | | + + + + + | Pulse | 77 | [...] | | + + + + + Plan of Treatment + + + + + | Health Maintenance | Due Date | Last Done | Comments | + + + + + | Vaccine: | | | | | Dtap/Tdap/Td (1 - | 0 | | | | Tdap) | | | | + + + + + | Cervical Cancer | | | | | Screening (Pap) | 9 | | | + + + + + | Vaccine: Influenza | | | | | (Season Ended) | 0 | | | + + + + + Results Not on filefrom Last 3 Months Insurance + +--------+ +--------+ +---------+------+ | Payer | Benefi | Subscriber | Effect | Phone | Address | Type | | | t Plan | ID | rosemary | | | | | | / | | Dates | | | | | | Group | | | | | | + +--------+ +--------+ +---------+------+ | [employer] | PROV | [id number] | 10/23/19 | [phone] | | PPO | | PLAN | HLTH | | 15-Pre | 5 | | | | | PREFER | | sent | | | | | | RED | | | | | | | | PPO | | | | | | | | 250 | | | | | | + +--------+ +--------+ +---------+------+ + +--------+ +--------+ + + | Guarantor Name | Accoun | Relation to | Date | Phone | Billing Address | | | t Type | Patient | of | | | | | | | | | | + +--------+ +--------+ + + | Shanice Bhagat | Person | Self [birth year] | [address] | | | al/Fam | | 1980 | [phone] | [place] | | | [place] | | | 3 (Home) | [address] | + +--------+ +--------+ + + Advance Directives + + + + + | Type | Date Recorded | Patient | Explanation | | | | Virtual Classroom Manager | | + + + + + | Power of | | | | | Telephone Order Dispatcher | | | | + + + + + | Advance | | | | | Directive | | | | + + + + +
--- OUTSIDE RECORDS SUMMARY | ~2020-01-29 | XMS | Encounter Summary ---
Demographics + + + | Address | [address] | | | [place] [address] | + + + | Home Phone | | + + + | Preferred Language | Unknown | + + + | Marital Status | | + + + | Caodaism Affiliation | Unknown | + + + | Race | Unknown | + + + | Ethnic Group | Unknown | + + + Author + + + | Author | [facility] | | | and [place] | + + + | Organization | [facility] | | [...] Team Providers + +------+ + | Care Hand Trucker Name | Role | Phone | + +------+ + PCP | Unavailable | + +------+ + Encounter Details +--------+ + + + + | Date | Type | Department | Care Team | Description | +--------+ + + + + | 03/27/ | Hospital | [facility] | | | | 1999 | Encounter | MED CTR EMERGENCY | | | | | | NANCY [address] | | | | | | [place] | | | | | | [address] | | | | | | [phone] | | | +--------+ + + + [...]
--- OUTSIDE RECORDS SUMMARY | ~2020-01-29 | XMS | Encounter Summary ---
Demographics + + + | Address | [address] | | | [place] [address] | + + + | Home Phone [...] Author + + + | Author | [facility] | + + + | Organization | [facility] | + + + | Address | Unknown | + + + | Phone | Unavailable | + + + Support + + +---------+ + | Name | Relationship | Address | Phone | + + +---------+ + | None Per Pt | ECON | Unknown | Unavailable | + + +---------+ + Care Team Providers + +------+ + | Care Cleaner Carpet And Upholstery Name | Role | Phone | + [...] | | | | | [place] | [place], [place] | | | | | | [address] | | | +--------+ + + + [...]
--- OUTSIDE RECORDS SUMMARY | ~2020-01-29 | XMS | Clinical Summary ---
Demographics + + + | Address | [address] | | | [place] [address] | + + + | Home Phone | | + + + | Preferred Language | Unknown | + + + | Marital Status | | + + + | Methodist Affiliation | Unknown | + + + | Race | Unknown | + + + | Ethnic Group | Unknown | + + + Author + + + | Author | [facility] | | | and [place] | + + + | Organization | [facility] | | | [...] Team Providers + +------+ + | Care Coil Tester Name | Role | Phone | + [...] +---------+------+ | [employer] J[employer]ON[employer] | PROV | [id number] | 10/23/[birth year] | [phone] | | PPO [...] [place] | | | 3 (Home) | [address] | + +--------+ +--------+ + + Advance Directives + + + + + | Type | Date Recorded | Patient | Explanation | | | | Voice Coach | | + + + + + | Power of | | | | | Coal Drier Operator | | | | + + + + + | Advance | | | | | Directive | | | | + + + + +
--- OUTSIDE RECORDS SUMMARY | ~2020-01-29 | XMS | Clinical Summary ---
Demographics + + + | Address | [address] | | | [place] [address] | + + + | Home Phone | | + + + | Preferred Language | Unknown | + + + | Marital Status | Single | + + + | Anabaptism Affiliation | Unknown | + + + | Race | White | + + + | Ethnic Group | Not or | + + + Author + + + | Author | [facility] | + + + | Organization | [facility] | + + + | Address | Unknown | + + + | Phone | Unavailable | + + + Support + + +---------+ + | Name | Relationship | Address | Phone | + + +---------+ + | None Per Pt | ECON | Unknown | Unavailable | + + +---------+ + Care Team Providers + +------+ + | Care Roller Coaster Operator Name | Role | Phone | + +------+ + | Razia Guzman PA-C | PCP | | + +------+ + Source Comments JULIO is fully live on both [facility] Ambulatory and [facility] InPatient.[facility] Allergies Not on File Medications Not [...] | PHP | [phone] | 08/24/19 | [phone] | [address] | PPO | | | [address]BB | | 17-[address] | [address] | [address] | | | | [address] | | sent | | [place], | | | | [place] | | | | [place] [address] | | + +--------+ +--------+ + +------+ [...] | | al/Fam | | 1980 | [phone] | [place] | | | [place] | | | 3 (Home) | [address] | + +--------+ +--------+ + +"
[~2020-01-29 08:32] MED LIST: ACYCLOVIR400 MG PO; AVIANE1 EACH PO; BONTRIL SLOW-R105 MG PO; GLUCOPHAGE500 MG PO; NORCO 5-325 TA1 EACH PO; OMEPRAZOLE20 MG PO; PERCOCET 5-3251 EACH PO; PRENATAL PLUS1 EAC2 PO; SARAFEM20 MG PO; ZOFRAN4 MG PO; ZYRTEC10 M1 PO
--- OUTSIDE RECORDS SUMMARY | 2020-01-29 08:36 | XMS ---
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 Patti has no Care Guidelines for this patient. [place] VISIT COUNT (12 MO.) 1 TOM Weinstein TOTAL 1 NOTE: Visits indicate total known visits. ED/UCC VISIT TRACKING (12 MO.) 01/29/2020 08:33 [place] TYPE: Emergency COMPLAINT: - VAGINAL BLEEDING, 16 WKS INPATIENT VISIT TRACKING (12 MO.) No inpatient visits to display in this time frame [id number]
[2020-01-29] MEDS ORDERED: FLUOXETINE HCL40 MG PO (08:45)
[2020-01-29] MEDS ORDERED: PRENATAL FORMU1 EAC2 PO (08:46)
== END 2020-01-29 12:19 | disposition home or self-care (01) ==
LOC: ED 08:32
DX: O20.0 Threatened abortion (principal); Z87.891 Personal history of nicotine dependence; Z88.0 Allergy status to penicillin; Z88.1 Allergy status to other antibiotic agents; Z88.2 Allergy status to sulfonamides; Z79.899 Other long term (current) drug therapy; Z3A.16 16 weeks gestation of pregnancy
CPT/HCPCS: 76815; 80053; 81001; 85025; 87210; 96360; 99284-25; J7030

== ENCOUNTER 2020-07-04 09:53 | Inpatient (IN) | payer OTHER ==
[~2020-07-04 09:53] MED LIST changes: +FLUOXETINE HCL40 MG PO; +PRENATAL FORMU1 EAC2 PO
--- NOTE | 2020-07-05 10:37 | NUR ---
07/05/20 [facility] Brooke,Lillian Arzate 0845: PATIENT WIDE AWAKE ON ADMIT TO RECOVERY. DENIES PAIN. DENIES NAUSEA. VSS. 0857: FUNDAL CHECK COMPLETED BY [facility] RN. 0908: FUNDAL CHECK COMPLETED BY [facility] RN. REPORT GIVEN TO [facility] RN.
--- NOTE | 2020-07-06 12:43 | PR ---
[facility] [address] [facility] [place] [address] Signed PP Progress Notes Datetime Report Generated by CPN: 07/06/2020 12:43 SUBJECTIVE: [id number] Pain: Within Normal Limits Nausea/Vomiting: Denies Vital Signs: [id number] Vital Signs: Reviewed; Within Normal Limits Notable Details: PP Hgb/Hct = 10.6/30.8 EXAM: Ongoing Abdomen/Uterus: Normal Lochia: Normal Extremities: Normal Incision: Normal IMPRESSION/PLAN/PROCEDURES: [id number] Impression: Normal Progression Plan: Continue Present Management Procedures: None Progress Notes: Doing well, without complalint, tolerating food well, voiding without difficulty. Increase activity as tolerated. Signing Physician: Steve Mohamud MD Copies: ~ *Electronically Signed* 07/06/20 1243 STEVE MOHAMUD MD PATIENT NAME: KENJI GALVEZ PROGRESS NOTE DATE OF : 78 PHYSICIAN: STEVE MOHAMUD MD RPT #: [id number] REPORT IS CONFIDENTIAL AND NOT TO BE RELEASED WITHOUT AUTHORIZATION
--- NOTE | 2020-07-06 12:58 | OR ---
[facility] [address], [place] [address] Signed DATE OF OPERATION: 07/05/2020 SURGEON: Mayur Garcia MD PREOPERATIVE DIAGNOSES: Term , previous section x2, and sterilization. POSTOPERATIVE DIAGNOSES: Term , previous section x2, and sterilization. PROCEDURE: Repeat low transverse segment section, delivery of live female with bilateral tubal ligation. WASHHOUSE HAND: Bertha Christian DO. ANESTHESIA: Spinal. ESTIMATED BLOOD LOSS: 600 mL. COMPLICATIONS: None. DRAINS: Arauz to bladder. FINDINGS: Live female , Apgars 8 and 9, weight 6 pounds 14 ounces. Normal uterus, normal tubes and ovaries bilateral. There were moderate amount of peritoneal adhesions by the lower uterine segment, these were thin. There was also omental adhesions to the anterior abdominal wall on the left side at the level of the umbilicus. DESCRIPTION OF PROCEDURE: The patient was brought to the operating room and placed in supine position. After adequate spinal anesthesia was obtained, she was prepped and draped in usual sterile fashion. Arauz catheter was placed in the bladder. A Pfannenstiel skin incision made with a scalpel and extended through subcutaneous tissue with Bovie and scalpel. Fascia Electronically Signed By: MAYUR GARCIA MD 07/06/20 1258 PATIENT NAME: KENJI GALVEZ OPERATIVE REPORT DATE OF : 78 REPORT #: [id number] PHYSICIAN: MAYUR GARCIA MD PCP: GIOVANNI DURAN PAC REPORT IS CONFIDENTIAL AND NOT TO BE RELEASED WITHOUT AUTHORIZATION [facility] [address], [place] [address] Signed was nicked with scalpel and extended in transverse fashion using curved scissors. The underlying abdominal musculature was bluntly sharply from the fascia above and below the incision. The abdominal musculature was quite adherent in the midline, so the midline was grasped with hemostats, elevated, nicked with curved scissors. This was carefully taken down till finger could be placed into the abdomen and then the abdominal wall was elevated and the incision opened along the midline using curved scissors toward the bladder. The abdominal musculature and peritoneum were and the abdominal musculature was then along the midline leaving the peritoneum. The peritoneum was then bluntly opened with finger dissection. The band of peritoneal adhesions from the left side to the midline was dissected free with Bovie and then the Carlyle self-retaining retractor inserted into the incision and tightened in place. The lower uterine segment was identified and there was still some elevation of the bladder flap, so the incision was made just above this and using a scalpel, a bulging bag of clear fluid came from the incision. Finger dissection was used to extend the incision in transverse fashion and then pickups with teeth used to open the bag of water. The infant was noted to be in vertex JOSE M presentation. The infant's head was easily delivered from the incision. The cord was noted to be around the neck once loosely, this was removed and the rest of the infant easily delivered from the incision. The cord was doubly clamped and cut and the infant passed off table in good condition awaiting nurse. The cord blood was obtained and then the placenta manually removed, the uterine cavity explored a lap pad to remove any retained membranes. An angle stitch of 0 Monocryl was placed at one in the incision and a running locking stitch of 0 Monocryl suture starting at the other end used to close the incision. A 2nd running stitch of 0 Monocryl was used to imbricate the 1st layer. Good hemostasis was noted except for one small area in the midline, this was controlled with a [id number] stitch of 0 Monocryl. The entire pelvis was irrigated, suctioned, examined any superficial bleeding spots cauterized with the Bovie because of the large raw area from the peritoneal adhesions and elevated bladder that was taken down. After good hemostasis, the entire area was carefully inspected, but there was a large raw area. There was one thicker band of peritoneal adhesions on the midportion of the uterus and this was tied off with a free tie of 0 chromic suture. The left fallopian tube was then identified, grasped in the midportion, grasped with a Kintyre clamp and an avascular portion of mesosalpinx opened with the Bovie. Two free ties of 0 chromic were passed through the opening and the fallopian tube tied proximal and distal to the clamp. The intervening portion of the tube was removed using Metzenbaum scissors and the two pedicles cauterized with the Bovie. The right side was done in a similar fashion grasping the fallopian tube in midportion using Bovie to open the avascular portion of mesosalpinx and then two ligatures of 0 chromic passed through the opening and tying the tube proximal and distal to the clamp, the portion of tube was removed and the two pedicles tips cauterized with the Bovie. Good hemostasis was noted. The uterus placed back in the abdomen, entire pelvis, skin irrigated, suctioned and examined for any superficial spots, cauterized with the Bovie. Good hemostasis was obtained at this time, so the Carlyle retractor was Electronically Signed By: MAYUR GARCIA MD 07/06/20 3007 PATIENT NAME: KENJI GALVEZ OPERATIVE REPORT DATE OF : 78 REPORT #: [id number] PHYSICIAN: MAYUR GARCIA MD PCP: GIOVANNI DURAN PAC REPORT IS CONFIDENTIAL AND NOT TO BE RELEASED WITHOUT AUTHORIZATION [facility] [address], [place] [address] Signed removed. The lower uterine segment was sprayed with Tisseel to further help with hemostasis, and then sheet of ACell placed over the lower uterine segment. The tubal ligation segments were once again observed and noted to have good hemostasis, so the peritoneum was closed using running stitch of 2-0 Vicryl suture. The abdominal musculature was reapproximated using interrupted stitches of 0 Vicryl suture. The abdominal wall incision was irrigated, suctioned, examined, any bleeding spots cauterized with the Bovie. Powdered ACell sprinkled over the abdominal musculature and remaining Tisseel placed in the lower portion of the abdominal musculature where there had been some bleeding. The fascia was then closed using 2 running stitches of 0 Vicryl suture meeting in the midline. Subcutaneous tissue was irrigated, suctioned and examined, any bleeding spots cauterized with the Bovie. The subcutaneous tissue was then closed using interrupted stitches of 3-0 Vicryl sutures. Skin was reapproximated using skin clips. The patient tolerated the procedure well, went to recovery room in good condition. The sponge, needle, and instrument count were correct at the end of the procedure. Two segments of fallopian tube went to Pathology for identification. Mayur Garcia MD MJB/MODL /[id number] Copies: ~ Electronically Signed By: MAYUR GARCIA MD 07/06/20 1258 PATIENT NAME: KENJI GALVEZ JOSHUA OPERATIVE REPORT DATE OF : 78 REPORT #: [id number] PHYSICIAN: MAYUR GARCIA MD PCP: GIOVANNI DURAN PAC REPORT IS CONFIDENTIAL AND NOT TO BE RELEASED WITHOUT AUTHORIZATION
--- NOTE | 2020-07-09 15:58 | PATH ---
[facility] [address], [place] [address] Signed SPECIMEN(S): A FALLOPIAN TUBES, BILATERAL SPECIMEN SOURCE: A. FALLOPIAN TUBES, BILATERAL CLINICAL HISTORY: Desired and approved. Repeat section with tubal ligation. FINAL PATHOLOGIC DIAGNOSIS: Fallopian tubes, left and right, bilateral tubal ligation: - Two fallopian tube segments, one with paratubal cysts. - Complete cross-section of each tube is identified. NAL:cml:C2NR MICROSCOPIC EXAMINATION: Histologic sections of all submitted blocks are examined by light microscopy. These findings, together with the gross examination, support the pathologic diagnosis. GROSS DESCRIPTION: The specimen, labeled "MH," and designated on the requisition "bilateral fallopian tubes," is received in formalin and consists of two segments of red-brown and demarco-pastor fallopian tube (1.1 cm in length x 0.7 cm in diameter and 1.4 cm in length x 0.7 cm in diameter). One fallopian tube segment is arbitrarily inked blue. Both segments are submitted in toto in cassette (A1) and will be cut at embedding. AC (under the direct supervision of a pathologist) The Gross Description was prepared using a voice recognition system. The report was reviewed for accuracy; however, sound-alike word errors, addition and/or deletions may occur. If there is any question about this report, please contact Client Services. PERFORMING LABORATORY: The technical component was performed by [facility], [address] [place] [id number] (Brass Burnisher: Natalie Aguilera MD; CLIA# [id number]). [facility] [address] [address] (CLIA# [id number]). Diagnostician: Lakisha Vaca MD PATIENT NAME: KENJI GALVEZ PATHOLOGY DATE OF : 78 REPORT #: [id number] PHYSICIAN: NELLIE PATHOLOGY PCP: GIOVANNI DURAN REPORT IS CONFIDENTIAL AND NOT TO BE RELEASED WITHOUT AUTHORIZATION [address] [address] Signed Pathologist Electronically Signed 07/09/2020 Copies: ~ PATIENT NAME: KENJI GALVEZ PATHOLOGY DATE OF : 78 REPORT #: [id number] PHYSICIAN: NELLIE PATHOLOGY PCP: GIOVANNI DURAN PAC REPORT IS CONFIDENTIAL AND NOT TO BE RELEASED WITHOUT AUTHORIZATION
== END 2020-07-07 12:50 | disposition home or self-care (01) | DRG 784 ==
LOC: FBC 07-05 05:04 → MS 07-06 16:00 → FBC 07-06 16:01
PROVIDERS: ADMIT General Practice; ATTEND General Practice
PROC: 10D00Z1 Extraction of Products of Conception, Low, Open Approach (ICD-10-PCS; principal; 2020-07-05 06:45)
PROC: 0UB70ZZ Excision of Bilateral Fallopian Tubes, Open Approach (ICD-10-PCS; 2020-07-05 06:45)
DX: O34.211 Maternal care for low transverse scar from previous cesarean delivery (principal); O98.32 Other infections with a predominantly sexual mode of transmission complicating childbirth; N85.8 Other specified noninflammatory disorders of uterus; Z30.2 Encounter for sterilization; O69.81X0 Labor and delivery complicated by cord around neck, without compression, not applicable or unspecified; O99.824 Streptococcus B carrier state complicating childbirth; O99.344 Other mental disorders complicating childbirth; F32.9 Major depressive disorder, single episode, unspecified; A60.00 Herpesviral infection of urogenital system, unspecified; O24.424 Gestational diabetes mellitus in childbirth, insulin controlled; Z37.0 Single live birth; Z3A.39 39 weeks gestation of pregnancy; Z87.891 Personal history of nicotine dependence; Z79.899 Other long term (current) drug therapy; Z88.1 Allergy status to other antibiotic agents; Z88.2 Allergy status to sulfonamides; Z88.0 Allergy status to penicillin
CPT/HCPCS: 01961; 36415; 85027; A9270; J0690; J1644; J1885; J2001; J2274; J2370; J2405; J2590; J7121

== ENCOUNTER 2022-03-17 11:27 | Emergency (ER) | payer OTHER ==
[~2022-03-17] VITALS: Ht 157.5 cm; Wt 89.1 kg
--- OUTSIDE RECORDS SUMMARY | 2022-03-17 11:30 | XMS ---
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 E.Conner VISIT COUNT (12 MO.) 1 TOM Weinstein TOTAL 1 NOTE: Visits indicate total known visits. ED/UCC VISIT TRACKING (12 MO.) 03/17/2022 11:28 [facility] [place] TYPE: Emergency COMPLAINT: - L SIDE ABD PAIN INPATIENT VISIT TRACKING (12 MO.) No inpatient visits to display in this time frame [email or web address]
[2022-03-17] MEDS ORDERED: AMOX TR-K CLV1 EAC1 PO (16:07)
[2022-03-17] MEDS ORDERED: HYDROCODON-ACE1 EA10 PO (16:10)
== END 2022-03-17 16:29 | disposition home or self-care (01) ==
LOC: ED 11:27
DX: K57.32 Diverticulitis of large intestine without perforation or abscess without bleeding (principal); Z87.891 Personal history of nicotine dependence; Z88.0 Allergy status to penicillin; Z88.1 Allergy status to other antibiotic agents; Z88.2 Allergy status to sulfonamides
CPT/HCPCS: 36415; 74177; 80053; 83690; 84703; 85025; J1885; Q9967

== ENCOUNTER 2023-01-04 11:45 | Emergency (ER) | payer OTHER ==
[~2023-01-04] VITALS: Ht 157.5 cm; Wt 90.9 kg
[~2023-01-04 11:45] MED LIST changes: +AMOX TR-K CLV1 EAC1 PO; +HYDROCODON-ACE1 EA10 PO
--- OUTSIDE RECORDS SUMMARY | 2023-01-04 11:49 | XMS ---
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 EEmely VISIT COUNT (12 MO.) [address] [facility] TOTAL 2 NOTE: Visits indicate total known visits. ED/UCC VISIT TRACKING (12 MO.) 01/04/2023 11:47 [facility] [place] TYPE: Emergency COMPLAINT: - CHEST PAIN,SOB 03/17/2022 11:28 T[facility] [place] TYPE: Emergency COMPLAINT: - L SIDE ABD PAIN DIAGNOSES: - Allergy status to other antibiotic agents - Allergy status to penicillin - Allergy status to sulfonamides - Diverticulitis of large intestine without perforation or abscess without bleeding - Personal history of nicotine dependence - Unspecified abdominal pain INPATIENT VISIT TRACKING (12 MO.) No inpatient visits to display in this time frame [email or web address]
[2023-01-04] MEDS ORDERED: ADDERALL 10 MG10 MG PO (12:01)
[2023-01-04] MEDS ORDERED: METFORMIN HCL500 M1 PO (12:01)
[2023-01-04] MEDS ORDERED: MELOXICAM15 MG PO (12:01)
[2023-01-04] MEDS ORDERED: CYCLOBENZAPRINE5 MG PO (13:04)
[2023-01-04 13:20] VITALS: BP 148/100
--- NOTE | 2023-01-04 17:44 | EKG ---
[facility] [address] [facility] [place] [address] Signed Sinus tachycardia Otherwise normal ECG When compared with ECG of 06-FEB-2022 09:15, Vent. rate has increased BY 47 BPM T wave inversion now evident in Inferior leads Confirmed by PEDRITO BASURTO MD ([id number]) on 01/04/2023 5:44:38 PM Electronically Signed By: PEDRITO BASURTO MD 01/04/23 1744 PATIENT NAME: KENJI GALVEZ JOSHUA Electrocardiogram DATE OF : 78 PHYSICIAN: PEDRITO BASURTO MD REPORT #: [id number] REPORT IS CONFIDENTIAL AND NOT TO BE RELEASED WITHOUT AUTHORIZATION
== END 2023-01-04 13:20 | disposition home or self-care (01) ==
LOC: ED 11:45
DX: M79.602 Pain in left arm (principal); I10 Essential (primary) hypertension; Z87.891 Personal history of nicotine dependence; Z88.0 Allergy status to penicillin; Z88.1 Allergy status to other antibiotic agents; Z88.2 Allergy status to sulfonamides; Z79.84 Long term (current) use of oral hypoglycemic drugs; Z79.899 Other long term (current) drug therapy
CPT/HCPCS: 36415; 71045; 80053; 83735; 84484; 85025; 85379; 85610; 93005; 93010